=== PATIENT | female | born 1985 | race Caucasian/White ===

== ENCOUNTER 2017-11-07 00:02 | Emergency (ER) | payer MEDICAID ==
[~2017-11-07] VITALS: Ht 149.9 cm; Wt 65.8 kg
[2017-11-07 00:32] LABS: APPEARANCE,URINE CLEAR; BILIRUBIN, URINE NEGATIVE (NEGATIVE); COLOR,URINE PALE YELLOW; GLUCOSE, URINE (UA) NEGATIVE (NEGATIVE); KETONES,URINE NEGATIVE (NEGATIVE); LEUKOCYTE ESTERASE ,URINE NEGATIVE (NEGATIVE); NITRITE,URINE NEGATIVE (NEGATIVE); PH,URINE 6.5 (4.5-8.0); PROTEIN,URINE NEGATIVE (NEGATIVE); UROBILINOGEN,URINE NORMAL MG/DL (0.0-1.0)
[2017-11-07] MEDS ORDERED: Lidocaine 1% MPF 10mg/ml 5ml INJ ONE (00:45)
[2017-11-07] MEDS ORDERED: Azithromycin 250mg tab ORAL ONE (00:45)
--- NOTE | 2017-11-07 01:13 | Emergency Room Report ---
History of Present Illness General Chief Complaint: Pelvic Pain Source: Patient Present Illness HPI Is a 32-year-old female who presents with chief complaint of vaginal/pelvic pain. She is sexually active with one partner. She found out that he is a "male whore." For last few days she felt some itchiness and pain. No discharge. No nausea no vomiting. No dysuria frequency. She was concerned for possible STDs. Allergies: Coded Allergies: No Known Allergies (Unverified , 11/07/17) Patient History Past Medical History: see triage record, old chart reviewed Past Surgical History: none Pertinent Family History: none Social History: Denies: smoking Last Menstrual Period: 10/09/2017 Now: No Immunizations: other Reviewed Nursing Documentation: PMH: Agreed; PSxH: Agreed Nursing Documentation-PMH Past Medical History: No Stated History Review of Systems Eye: Denies: eye pain, blurred vision ENT: Denies: ear pain, nose congestion, throat swelling Respiratory: Denies: cough, shortness of breath Cardiovascular: Denies: chest pain, palpitations Gastrointestinal: Denies: abdominal pain, diarrhea, nausea, vomiting Musculoskeletal: Denies: back pain, joint pain Skin: Denies: rash Neurological: Denies: headache, numbness Endocrine: Denies: increased thirst, increased urine Hematologic/Lymphatic: Denies: easy bruising All Other Systems: negative except mentioned in HPI Physical Exam Vital Signs Date Time Temp Pulse Resp B/P (MAP) Pulse Ox O2 Delivery O2 Flow Rate FiO2 11/07/17 00:07 98.0 104 21 134/96 99 Room Air 98.1 Sp02 EP Interpretation: reviewed, normal General Appearance: well appearing, no apparent distress, alert Head: normocephalic, atraumatic Eyes: bilateral eye PERRL, bilateral eye EOMI ENT: hearing grossly normal, normal pharynx Neck: full range of motion, supple, no meningismus Respiratory: chest non-tender, lungs clear, normal breath sounds Cardiovascular #1: regular rate, rhythm, no murmur Gastrointestinal: normal bowel sounds, non tender, no mass, no organomegaly, no bruit, non-distended Genitourinary: other - Pelvic exam done with female RN as urban forester. External exam normal. She has small abrasion just above the clitoris. Internal exam show brownish discharge most likely from old blood Musculoskeletal: back normal, gait/station normal, normal range of motion Psychiatric: mood/affect normal Skin: warm/dry Medical Decision Making Diagnostic Impression: Primary Impression: Pelvic pain ER Course Is a with pelvic pain. No evidence of any discharge or UTI. Because of her exposure to STD we'll go ahead and cover with gonorrhea and Chlamydia. Told patient she get outpatient testing done for HIV, hepatitis, other STDs. Last Vital Signs Date Time Temp Pulse Resp B/P (MAP) Pulse Ox O2 Delivery O2 Flow Rate FiO2 11/07/17 00:07 98.0 104 21 134/96 99 Room Air 98.1 Status: improved Disposition: HOME, SELF-CARE Condition: Stable Patient Instructions: Pelvic Pain, Female Additional Instructions: Recommend outpatient testing for STDs, HIV, hepatitis, syphilis to name a few. Follow-up with in 7 days. Return if worse. OVIDIO WING M.D. Nov 07, 2017 01:13
[2017-11-07] MEDS ORDERED: PSEUDOEPHEDRINE60 MG PO (01:28)
[2017-11-07 01:30] VITALS: BP 134/96
== END 2017-11-07 01:20 | disposition home or self-care (01) ==
LOC: EMR 00:16
DX: R10.2 Pelvic and perineal pain (principal); Z20.2 Contact with and (suspected) exposure to infections with a predominantly sexual mode of transmission
CPT/HCPCS: 81003; 81025; 87210; 96372; 99283; J0696; Q0144